=== PATIENT | female | born 1960 | race Caucasian/White ===

== ENCOUNTER 2018-01-18 12:39 | Emergency (ER) | payer MEDICAID ==
[~2018-01-18] VITALS: Ht 157.5 cm; Wt 65.0 kg
[2018-01-18] MEDS ORDERED: AMLO2.5T2 PO (13:17)
[2018-01-18 13:28] VITALS: BP 182/88
== END 2018-01-18 13:35 | disposition home or self-care (01) ==
LOC: ER 12:40
DX: I10 Essential (primary) hypertension (principal); Z98.890 Other specified postprocedural states; Z79.899 Other long term (current) drug therapy
CPT/HCPCS: 93005; 99283

== ENCOUNTER 2024-08-29 06:58 | Outpatient (CLI) | payer MEDICAID ==
[~2024-08-29] VITALS: Ht 157.5 cm; Wt 75.7 kg
[2024-08-29 07:41] VITALS: PULSE 59; RESP 16; O2SAT 98
[2024-08-29] MEDS: albuterol 2.5 MG/3 ML nebule NEB ONE (07:51)
[2024-08-29 07:52] VITALS: PULSE 56; RESP 16
== END 2024-08-29 23:59 | disposition home or self-care (01) ==
LOC: RT 06:58
PROVIDERS: ATTEND Family Medicine
DX: R06.02 Shortness of breath (principal)
CPT/HCPCS: 94060; 94760